=== PATIENT | female | born 1965 | race Caucasian/White ===

== ENCOUNTER 2017-11-01 15:06 | Emergency (ER) | payer SELFPAY ==
[2017-11-01 15:09] VITALS: BP 154/103; PULSE 75; RESP 18; TEMP 36.6; O2SAT 97; BMI 37.6
[2017-11-01 16:15] LABS: Absolute Lymphocyte Count 1.82 X10^3/ul (0.83-4.51); Absolute Neutrophil Count 3.9 X10^3/uL (2.0-7.7); Basophil# 0.01 X10^3/uL; Basophil% 0.2 % (0-1); Eosinophil# 0.21 X10^3/uL; Eosinophils% 3.3 % (0-5); Hematocrit 39.3 % (37-47); Hemoglobin 12.9 g/dl (12.0-15.0); Lymphocyte # 1.82 X10^3/ul (4.0); Lymphocyte % 28.6 % (19-41); Mean Corp Hgb Conc 32.8 g/gl (32-36); Mean Corpuscular Hgb 28.2 pg (27.0-32.0); Mean Platelet Vol. 9.4 fl (6.2-12.0); Monocyte# 0.41 X10^3/uL; Monocyte% 6.4 % (0-10); Neutrophil % 61.2 % (47-70); POSITIVE COUNT NO; POSITIVE DIFFERENTIAL NO; POSITIVE MORPHOLOGY NO; Platelet Count 228 K/mm3 (150-450); RBC Distribution Width CV 14.2 % (11.6-14.6); RBC Distribution Width SD 43.9 fl (35.1-43.9); Red Blood Count 4.57 M/mm3 (4.2-5.4); White Blood Count 6.4 K/mm3 (4.4-11.0)
[2017-11-01 16:30] LABS: Pregnancy, Serum, hCG Quali. NEGATIVE Negative (0-9 Nonpreg)
--- NOTE | 2017-11-01 16:36 | ED.VISSUMM ---
- ER Visit Summary Date of Service: 11/01/17 Chief Complaint: Vaginal bleeding that started last evening History of Present Illness: The patient is a 52 F who presents with vaginal bleeding that started last evening. She has used 12 tampons since 1830. She states she is passing clots. She is on no anticoagulant. She reports vaginal bleeding last month. Last normal menstrual period 9-10 months ago. She denies any fever, chills or night sweats. She denies any weight gain or weight loss. She denies any cardiac respiratory symptoms. She denies abdominal pain. She denies nausea, vomiting, diarrhea or constipation. She denies dysuria, frequency, urgency or hematuria. She denies dyspareunia. Physical Examination: Vital signs are remarkable for an elevated blood pressure. HEENT exam is unremarkable pink conjunctival. Heart is regular without murmur, gallop or rub. S1 and S2 are normal. Lungs are clear to auscultation with good movement of air bilaterally. Abdomen is soft nontender. Surgical scar secondary to and cholecystectomy are noted. They are well-healed. There is no inguinal lymphadenopathy. External genitalia is normal. There is blood in the vaginal vault with active bleeding. There appears to be a soft fleshy mass extruding from the office. The cervix, otherwise, does not appear abnormal. Bimanual exam is limited secondary body habitus. There is no cervical motion tenderness. There is a fleshy palpable mass which may represent a polyp or tumor (see benign versus malignant) Test Results: The uterus is anteverted and is in a midline position. The uterus measures 9.7 x 6.9 x 5.8 cm. Cervical nabothian cysts are present. The endometrium measures 11 mm in thickness, and is hyperechoic. There is no demonstrated endometrial mass. 3 uterine fibroids are noted, measuring 1.9 x 2.0 x 1.9 cm, 5.5 x 5.6 x 4.2 cm, and 1.7 x 1.9 x 1.6 cm respectively. I.U.D. - The patient does not have an I.U.D. CBC and hemoglobin unremarkable. Serum test is negative. Emergency Department Course and Treatment: CBC was obtained to assess for anemia. Clinically she does not appear anemic. Serum test. Because of the abnormal finding on pelvic exam ultrasound was obtained and will contact Dr. Khan who is on for MACHINE TRIMMER, no doc. Treatment Plan: Case was discussed with Dr. Khan. He requested patient call office on Friday to be seen this coming week and to prescribe AYGEST right heel be in your list IN 5 mg tablets 3 times daily for 1 week. Disposition: Discharged to home Impression: 1. Abnormal vaginal bleeding 2. Multiple uterine fibroids 3. Nabothian cyst This note was generated with [employer] dictation software. It may contain incorrect words, spelling, and punctuation that were not noted in review of the chart prior to signing ED Disposition - Plan for ED Patient: Disposition: Home or Assisted Living Chief Complaint: Vag Bleeding Instructions: ED Bleed Irregular Vaginal Prescriptions: Norethindrone [Aygestin] 5 mg PO TID 5 Days #21 tab Referrals: Noel Judd DO [Primary Care Provider] - Reyes Khan MD [STAFF PHYSICIAN] - 5-7 Days Additional Instructions: Call Dr. Khan office Friday to be seen within the next 5-7 days.
[2017-11-01 18:29] VITALS: BP 168/89; PULSE 77; RESP 18; O2SAT 99
== END 2017-11-01 18:50 | disposition home or self-care (01) ==
PROVIDERS: Emergency Provider Emergency Medicine; Family Provider Family Medicine; PCP Family Medicine
DX: D25.9 Leiomyoma of uterus, unspecified (principal); N88.8 Other specified noninflammatory disorders of cervix uteri; N93.9 Abnormal uterine and vaginal bleeding, unspecified; E66.9 Obesity, unspecified; Z79.899 Other long term (current) drug therapy
CPT/HCPCS: 76830; 84703; 85025; 99282

== ENCOUNTER → 2017-11-05 16:44 | Outpatient (CLI) | payer SELFPAY ==
--- NOTE | 2017-11-05 | CER_PTH ---
PATIENT: BALA SPARROW LOC: [facility] U#:[id number] AGE/SX: 59/F ROOM: RE11/05/[address]: Dr. Reyes Khan MD : 1965 BED: DIS: SPEC #: [id number] RECD: 11/05/17 17:08 STATUS: RAQUEL MILLIE #: [id number] ONEIDA: 11/05/17 00:[address]: Reyes Khan DEPT: SURGICAL PATHOLOGY RECD BY: Aristides Carlos Tissues: A - Uterine cervix, NOS B - Endometrium, NOS Procedures: Surgery Specimen Level IV HEADER OPERATION: Endometrial biopsy; removal cervical polyp PRE-OP DIAGNOSIS: Thickened endometrium, menorrhagia TISSUE SUBMITTED: A ? Endocervical polyp, B ? Endometrial biopsy MICROSCOPIC DIAGNOSIS A. Endocervical polyp, polypectomy: Benign endocervical polyp, inflamed. B. Endometrium, biopsy: Secretory endometrium. AM:alexis 11/07/17 MICROSCOPIC DESCRIPTION Slides are reviewed. GROSS DESCRIPTION A - Received in fixative is one container labeled with the patient's name and designated endocervical polyp. The specimen consists of a single glistening pink-bach polyp measuring 3 x 2 x 1 cm. The specimen is serially sectioned and totally submitted in one cassette. B - Received in fixative is one container labeled with the patient's name and designated endometrial biopsy. The specimen consists of multiple irregular and elongated fragments of red-bach soft tissue that in aggregate measure 3 x 3 x 0.2 cm. The specimen is totally submitted in one cassette. / AM:alexis 11/06/17 TC:5 CPT: 44412 x2
[2017-11-05 18:06] LABS: Follicle Stimulating Hormone 22.9 mIU/mL
== END ==
PROVIDERS: Visit Provider Obstetrics & Gynecology
DX: N93.8 Other specified abnormal uterine and vaginal bleeding (principal); N84.0 Polyp of corpus uteri
CPT/HCPCS: 36415; 83001; 88305

== ENCOUNTER 2017-11-14 17:19 | Emergency (ER) | payer SELFPAY ==
[2017-11-14 17:21] VITALS: BP 166/103; PULSE 71; RESP 18; TEMP 36.7; O2SAT 99; BMI 37.1
--- NOTE | 2017-11-14 17:44 | ED.VISSUMM ---
- ER Visit Summary Date of Service: 11/14/17 Chief Complaint: Vaginal bleeding History of Present Illness: The patient is a 52 F presenting with vaginal bleeding. She states it started 2 weeks ago and bleeding has been intermittent. She was seen in the ED 2 weeks ago for same complaint. At that time she had an ultrasound and blood work performed. She was started on Aygestin. She states she took this for 1 week. She said the bleeding resolved before even starting the medication. She states on November 01 she felt dizzy and passed out. At that time she was taken to [place] ER. She was given IV fluids and discharged. She followed up with Dr. Khan on 11/12/2017. She was told she is in menopause. She states she began having bleeding again 2 days ago. She states the bleeding has now slowed down. Physical Examination: Vitals are stable. Patient is afebrile. Alert no acute distress. HEENT exam is unremarkable. Lungs are clear and equal bilaterally. Heart is regular rate and rhythm. Abdomen is soft nontender nondistended. Pelvic: Small amount of old blood in the vaginal vault, cleared with cotton tip swab. No active bleeding. Extremities are unremarkable. Skin is warm and dry. Remainder of exam is unremarkable. Emergency Department Course and Treatment: Orthostatics are negative. Her hemoglobin is 11.7, previous was 12.9. Discussed with Dr. Bryanna Allen. She recommends offering another course of Aygestin and following up with Dr. Khan in the office. She is advised to return to the ED for any worsening complaints. Disposition: Discharge home Impression: Vaginal bleeding This note was generated with [employer] dictation software. It may contain incorrect words, spelling, and punctuation that were not noted in review of the chart prior to signing ED Disposition - Plan for ED Patient: Chief Complaint: Female C/O Instructions: Understanding Menopause Prescriptions: Norethindrone [Aygestin] 5 mg PO TID 7 Days #21 tablet Referrals: Reyes Khan MD [STAFF PHYSICIAN] - Noel Judd DO [Primary Care Provider] -
--- NOTE | 2017-11-14 17:47 | ED.DCSUM_ITS ---
- ER Visit Summary Date of Service: 11/14/17 Chief Complaint: Vaginal bleeding History of Present Illness: The patient is a 52 F presenting with vaginal bleeding. She states it started 2 weeks ago and bleeding has been intermittent. She was seen in the ED 2 weeks ago for same complaint. At that time she had an ultrasound and blood work performed. She was started on Aygestin. She states she took this for 1 week. She said the bleeding resolved before even starting the medication. She states on November 01 she felt dizzy and passed out. At that time she was taken to [place] ER. She was given IV fluids and discharged. She followed up with Dr. Khan on 11/12/2017. She was told she is in menopause. She states she began having bleeding again 2 days ago. She states the bleeding has now slowed down. Physical Examination: Vitals are stable. Patient is afebrile. Alert no acute distress. HEENT exam is unremarkable. Lungs are clear and equal bilaterally. Heart is regular rate and rhythm. Abdomen is soft nontender nondistended. Pelvic: Small amount of old blood in the vaginal vault, cleared with cotton tip swab. No active bleeding. Extremities are unremarkable. Skin is warm and dry. Remainder of exam is unremarkable. Emergency Department Course and Treatment: Orthostatics are negative. Her hemoglobin is 11.7, previous was 12.9. Discussed with Dr. Bryanna Allen. She recommends offering another course of Aygestin and following up with Dr. Khan in the office. She is advised to return to the ED for any worsening complaints. Disposition: Discharge home Impression: Vaginal bleeding This note was generated with [employer] dictation software. It may contain incorrect words, spelling, and punctuation that were not noted in review of the chart prior to signing ED Disposition - Plan for ED Patient: Chief Complaint: Female C/O Instructions: Understanding Menopause Prescriptions: Norethindrone [Aygestin] 5 mg PO TID 7 Days #21 tablet Referrals: Reyes Khan MD [STAFF PHYSICIAN] - Noel Judd DO [Primary Care Provider] -
[2017-11-14 18:09] LABS: Absolute Lymphocyte Count 1.86 X10^3/ul (0.83-4.51); Basophil# 0.01 X10^3/uL; Basophil% 0.2 % (0-1); Eosinophil# 0.23 X10^3/uL; Eosinophils% 3.6 % (0-5); Hematocrit 36.6 % (37-47); Hemoglobin 11.7 g/dl (12.0-15.0); Lymphocyte # 1.86 X10^3/ul (4.0); Lymphocyte % 28.8 % (19-41); Mean Corpuscular Hgb 27.9 pg (27.0-32.0); Mean Corpuscular Volume 87.1 fL (81-99); Mean Platelet Vol. 9.1 fl (6.2-12.0); Monocyte# 0.41 X10^3/uL; Monocyte% 6.3 % (0-10); Neutrophil # 3.95 X10^3/uL (2.7-7.7); Neutrophil % 61.1 % (47-70); POSITIVE COUNT NO; POSITIVE DIFFERENTIAL NO; POSITIVE MORPHOLOGY NO; Platelet Count 256 K/mm3 (150-450); RBC Distribution Width CV 15.3 % (11.6-14.6); White Blood Count 6.5 K/mm3 (4.4-11.0)
[2017-11-14 18:13] VITALS: BP 141/72; BP 143/91; BP 166/76; PULSE 73; PULSE 74; PULSE 77
--- NOTE | 2017-11-14 18:31 | ED.DEP ---
ED Disposition - Plan for ED Patient: Chief Complaint: Female C/O Instructions: Understanding Menopause Prescriptions: Norethindrone [Aygestin] 5 mg PO TID 7 Days #21 tablet Referrals: Noel Judd DO [Primary Care Provider] - Reyes Khan MD [STAFF PHYSICIAN] -
[2017-11-14 18:44] VITALS: BP 141/81; PULSE 79; RESP 16; O2SAT 99
== END 2017-11-14 18:45 | disposition home or self-care (01) ==
LOC: ED 17:55
PROVIDERS: Emergency Provider Emergency Medicine; Family Provider Family Medicine; PCP Family Medicine
DX: N93.9 Abnormal uterine and vaginal bleeding, unspecified (principal); I10 Essential (primary) hypertension; Z79.899 Other long term (current) drug therapy
CPT/HCPCS: 85025; 99283

== ENCOUNTER → 2019-01-06 | Outpatient (CLI) | payer SELFPAY ==
--- NOTE | 2019-01-06 13:45 | BI_ITS ---
MAMMOGRAPHY - BILATERAL SCREENING REASON FOR EXAM: Female, 53 years old. Routine annual screening examination. PERTINENT HISTORY: Non-contributory. Remote right excisional breast biopsy. TECHNIQUE: Digital bilateral breast dougie (3D mammographic acquisition) in the CC and MLO projections. 2-D mediolateral oblique (MLO) and craniocaudad (CC) views of both breasts were obtained. CAD: Full Field Digital Mammography with Computer Added Detection was performed. COMPARISON: Comparison is made with prior outside examination dated March 21 2010 on the hard copy films. FINDINGS: Breast Composition: The breasts are heterogeneously dense, which may obscure small masses. There are no dominant masses or suspicious calcifications. No other significant abnormalities are identified. There has been no significant change since the prior study. BI/SCREEN MAMM (CAD) W/DOUGIE BILAT IMPRESSION: Stable bilateral screening mammogram. Yearly follow-up mammogram recommended. (A) ASSESSMENT CATEGORY: BIRADS Category 1: Negative. A letter regarding these results will be sent to the patient by the facility within 30 days. Approximately 10% of breast cancers are not detected by mammography. A normal mammogram should not delay biopsy of a clinically suspicious abnormality. [id number] Electronically Signed: Amari Bridges, at 10:56 EST , Service support ,
== END | disposition home or self-care (01) ==
PROVIDERS: Family Provider Family Medicine; PCP Family Medicine; Referring Provider Obstetrics & Gynecology; Visit Provider Obstetrics & Gynecology
DX: Z12.31 Encounter for screening mammogram for malignant neoplasm of breast (principal)
CPT/HCPCS: 77063; 77067

== ENCOUNTER → 2019-09-01 13:55 | Outpatient (CLI) | payer SELFPAY ==
--- NOTE | 2019-09-01 11:50 | EMB_PTH ---
PATIENT: BALA SPARROW LOC: [facility] U#:[id number] AGE/SX: 59/F ROOM: RE09/01/[address]: Dr. Moe Paniagua MD : 1965 BED: DIS: SPEC #: [id number] RECD: 09/01/19 13:52 STATUS: RAQUEL MILLIE #: [id number] ONEIDA: 09/01/19 11:[address]: Moe Paniagua DEPT: SURGICAL PATHOLOGY RECD BY: Berry Beasley ENTERED: 09/02/19 08:11 SP TYPE: ENDOM BX/C ELOISE DR: Dr. Noel Judd DO Tissues: Endometrium, NOS Procedures: Surgery Specimen Level IV HEADER OPERATION: Endometrial biopsy PRE-OP DIAGNOSIS: N95.0 TISSUE SUBMITTED: Endometrial biopsy MICROSCOPIC DIAGNOSIS Endometrial biopsy: Disordered proliferative endometrium. SJ:alexis 09/03/19 MICROSCOPIC DESCRIPTION Slides are reviewed. GROSS DESCRIPTION Received in fixative is one container labeled with the patient's name and designated endometrial biopsy. The specimen consists of multiple irregular and elongated fragments of red-bach soft tissue that in aggregate measure 2 x 1.5 x 0.1 cm. The specimen is totally submitted in one cassette. / AM:alexis 09/02/19 TC:5 CPT: 97978
[2019-09-08 18:20] LABS: HPV Reflexed? NOT INDICATED
== END ==
PROVIDERS: PCP Family Medicine; Referring Provider Obstetrics & Gynecology; Visit Provider Obstetrics & Gynecology
DX: N95.0 Postmenopausal bleeding (principal); Z12.4 Encounter for screening for malignant neoplasm of cervix
CPT/HCPCS: 88175; 88305; G0145

== ENCOUNTER → 2021-12-19 | Outpatient (CLI) | payer SELFPAY ==
--- NOTE | 2021-12-19 | EMB_PTH ---
PATIENT: BALA SPARROW [id number] AGE/SX: 56/F ROOM: RE12/19/[address]: Dr. Destini Almeida DO : 1965 BED: DIS: 12/19/2021 SPEC #: [id number] RECD: 12/19/21 13:50 STATUS: RAQUEL RERicardo #: [id number] ONEIDA: 12/19/21 00:[address]: Destini Almeida DEPT: SURGICAL PATHOLOGY RECD BY: Aristides Carlos ENTERED: 12/20/21 08:54 SP TYPE: ENDOM BX/C ELOISE DR: Dr. Noel Judd DO Tissues: Endometrium, NOS Procedures: Surgery Specimen Level IV HEADER OPERATION: Endometrial biopsy PRE-OP DIAGNOSIS: PMB N95.0 TISSUE SUBMITTED: Endometrial biopsy MICROSCOPIC DIAGNOSIS Endometrium, biopsy: Strips of benign superficial endometrium and endocervix. AM:alexis 12/21/2021 MICROSCOPIC DESCRIPTION Slides are reviewed. GROSS DESCRIPTION Received in fixative is one container labeled with the patient's name and designated endometrial biopsy. The specimen consists of multiple fragments of hemorrhagic soft tissue that in aggregate measure 2 x 1.5 x 0.1 cm. The specimen is totally submitted in one cassette. / SJ:alexis 12/20/2021 TC:5 CPT: 11338
== END | disposition home or self-care (01) ==
LOC: LABSPEC 13:24
PROVIDERS: PCP Family Medicine; Visit Provider Student in an Organized Health Care Education/Training Program
DX: N95.0 Postmenopausal bleeding (principal)
CPT/HCPCS: 88305

== ENCOUNTER → 2021-12-27 | Outpatient (CLI) | payer SELFPAY | END | disposition home or self-care (01) | PROVIDERS: PCP Family Medicine; Visit Provider Obstetrics & Gynecology | DX: R30.0 Dysuria (principal) | CPT/HCPCS: 87086; 87088 ==

== ENCOUNTER 2022-11-12 09:17 | Day surgery (SDC) | payer SELFPAY ==
[2022-11-12] VITALS (7 sets, daily range): BP systolic 104–135; BP diastolic 61–78; PULSE 60–70; RESP 14–18; TEMP 36.4–36.6; O2SAT 93–99; BMI 39.6
--- NOTE | 2022-11-12 07:17 | HP.PCM.OB_ITS ---
History and Physical Date of Admission: 11/12/22 HPI: 57-year-old female with postmenopausal bleeding and thickened endometrial lining plan for hysteroscopy, dilation and curettage. Denies headache or vision changes, chest pain or shortness of breath, nausea or vomiting, diarrhea constipation, fevers or chills. MATERIALS PLANNING MANAGER history: G4, P3 Medical history: 1. Hypertension 2. Hypothyroidism Surgical history: 1. section 2. Cholecystectomy 3. Oral surgery Medications: 1. Amlodipine 2. Vitamin D 3. Iron 4. Hydrochlorothiazide 5. Levothyroxine 6. Fish oil 7. Red yeast rice Allergies: Codeine causes a rash, penicillin causes rash Family history: Noncontributory Social history: Denies tobacco, alcohol, drug use Review of system: Negative otherwise stated above Physical exam: Vitals pending General: No acute distress HEENT: Normocephalic/atraumatic, PERRLA Cardiorespiratory: Regular rate and rhythm, clear to auscultation bilaterally Abdomen: Soft, nontender Extremities: No edema Neurologic: Cranial nerves II through XII grossly intact, no focal deficits Musculoskeletal: Moves all extremities equally Assessment/plan: 57-year-old female with postmenopausal bleeding and thickened endometrial lining plan for hysteroscopy, dilation and curettage. All risks, benefits, alternatives were discussed with the patient: Risks include but are not limited to: Risk of bleeding to the point of transfusion, infection, injury to surrounding tissue including bowel/bladder potentially requiring prolonged Laboy catheter use/major abdominal vessels, VTE, ICU admission. Patient aware and consented.
[2022-11-12] MEDS: Lactated Ringers 1,000 ML 15 ML IV (10:19)
[2022-11-12 10:33] LABS: Hematocrit 43.2 % (37-47); Hemoglobin 14.4 g/dL (12.0-15.0); Mean Corp Hgb Conc 33.3 g/dL (32-36); Mean Corpuscular Hgb 29.2 pg (27.0-32.0); Mean Corpuscular Volume 87.6 fL (81-99); Mean Platelet Vol. 9.8 fl (6.2-12.0); Platelet Count 236 K/mm3 (150-450); RBC Distribution Width CV 14.2 % (11.6-14.6); RBC Distribution Width SD 45.6 fl (35.1-43.9); Red Blood Count 4.93 M/mm3 (4.2-5.4); White Blood Count 5.6 K/mm3 (4.4-11.0)
--- NOTE | 2022-11-12 10:59 | PCM.OPRPT ---
Report of Operation Date of Procedure: 11/12/22 Pre-Operative Diagnosis: Postmenopausal bleeding, thickened endometrial stripe Post-Operative Diagnosis: Postmenopausal bleeding, thickened endometrial stripe Surgery/Procedure Performed:: Hysteroscopy, dilation curettage, polypectomy Description of Surgical Findings:: Normal-appearing external genitalia. Minimal uterine descensus. Normal appearing cervix. Thickened endometrial lining with endometrial polyp. Surgeon: Destini Almeida Type of Anesthesia: MAC Specimen's removed: Endometrial curettings, endometrial polyp Estimated Blood Loss (mL): 5 cc Fluids Replaced: 400 cc Description of Procedure: Indication/risk/benefits: Procedure: Patient taken the operating room and MAC anesthesia induced. Patient placed in the dorsal lithotomy position prepped and draped in the usual sterile fashion. Weighted speculum placed in posterior vagina and Valadez retractor used to visualize the cervix. Anterior lip of the cervix grasped with Allis clamp. Cervix gradually dilated. Hysteroscope placed through the cervical canal with inspection of the endometrial cavity noting findings above. Hysteroscope removed. Curettage completed in a 360 degree manner. Polyp removed on endometrial curetting and use of polyp forceps. Confirmed on hysteroscopy. Allis clamp removed and weighted speculum removed. Cervix hemostatic. At the end of the procedure all needle, lap, sponge counts were correct. Urine output: 100 cc clear urine Complications None Admit VTE Documentation VTE Mechan Device Prophylaxis: SCD's
--- NOTE | 2022-11-12 11:00 | EMB_PTH ---
PATIENT: BALA SPARROW [place] [facility] [place][id number] AGE/SX: 57/F ROOM: RE11/12/[address]: Dr. Destini Almeida DO : 1965 BED: DIS: 11/12/2022 SPEC #: [id number] RECD: 11/12/22 11:23 STATUS: RAQUEL RERicardo #: [id number] ONEIDA: 11/12/22 11:[address]: Destini Almeida DEPT: SURGICAL PATHOLOGY RECD BY: Shital Davis ENTERED: 11/12/22 12:19 SP TYPE: ENDOM BX/C ELOISE DR: Dr. Noel Judd DO Tissues: Endometrium, NOS Procedures: Surgery Specimen Level IV HEADER OPERATION: Hysteroscopy, dilation and curettage PRE-OP DIAGNOSIS: Postmenopausal bleeding and thickened endometrial lining TISSUE SUBMITTED: Endometrial curettings, polyp MICROSCOPIC DIAGNOSIS Endometrial curettings and polyp: Simple and focal complex hyperplasia with focal mild atypia. Benign endometrial polyp with simple endometrial hyperplasia without atypia. See comment. DEVORAH:alexis 11/13/2022 COMMENT Clinical correlation and appropriate follow up are necessary. MICROSCOPIC DESCRIPTION Slides are reviewed. GROSS DESCRIPTION Received in fixative is one container labeled with the patient's name and designated endometrial curettings and polyp. The specimen consists of multiple fragments of hemorrhagic soft tissue that in aggregate measure 2.5 x 1.5 x 0.4 cm. Also present in the container is an irregular bach-pink polyp measuring 1.5 x 1.0 x 0.4 cm. The polyp is bisected. The entire specimen is submitted in three cassettes. Cassette 3 contains the polyp. / DEVORAH:alexis 11/12/2022 TC:5 CPT: 00687
--- NOTE | 2022-11-12 11:01 | DCINST_ITS ---
Discharge Instructions Diet Discharge Diet: No restrictions Activity Discharge Activity: Return to Normal Activity and May Shower May resume sexual activity in: 2 weeks Weight Bearing Status: Weight bearing as tolerated Lifting Restrictions: None Dressing / Incision Call your doctor if you observe: Fever of 101 or Higher, Change in Color, Inability to urinate, Using more than 1 pad per hour, Shortness of breath, Dizziness, Swelling in the ankles, Chest pain and Calf discomfort Follow Up Care Please Follow Up With: Destini Almeida DO When: 1-2 week postoperative visit Test Results: Test results from this visit will be discussed in further detail at your follow- up appointment, if applicable. Discharge Plan Admission Primary Reason for Your Visit: D&C Attending Provider: Destini Almeida Primary Care Provider: Noel Judd Discharge Orders/Prescriptions Prescriptions: Continued hydrochlorothiazide 25 MG tablet 25 mg PO DAILY ferrous sulfate 325 mg (65 mg iron) tablet,delayed release (DR/EC) 325 mg PO DAILY amlodipine 5 mg tablet 5 mg PO DAILY Patient Comments: TAKE 1 TABLET BY MOUTH ONCE DAILY levothyroxine 75 mcg tablet 75 mcg PO DAILY Patient Comments: TAKE 1 TABLET BY MOUTH ONCE DAILY cholecalciferol (vitamin D3) [Vitamin D3] 25 mcg (1,000 unit) capsule 25 mcg PO DAILY red yeast rice 600 mg capsule 600 mg PO DAILY Rx Instructions: give with meal/snack omega 2-ioq-ivh-fish oil [Fish Oil] 300-1,000 mg capsule 1 cap PO DAILY Referrals / Follow Up: Noel Judd DO [Primary Care Provider] - Disposition Disposition (needs filled in before D/C Order can be placed): Home, Self Care
[2022-11-12] MEDS: Acetaminophen 500 MG Tablet 1000 MG PO (11:53)
== END 2022-11-12 12:23 | disposition home or self-care (01) ==
LOC: SDC 09:23 → AC 09:24
PROVIDERS: PCP Family Medicine; Referring Provider Student in an Organized Health Care Education/Training Program; Visit Provider Student in an Organized Health Care Education/Training Program
PROC: 0UDB8ZZ Extraction of Endometrium, Via Natural or Artificial Opening Endoscopic (ICD-10-PCS; CPT 58558; principal; 2022-11-12 10:50)
DX: N85.01 Benign endometrial hyperplasia (principal); N95.0 Postmenopausal bleeding; I10 Essential (primary) hypertension; E03.9 Hypothyroidism, unspecified; Z79.899 Other long term (current) drug therapy
CPT/HCPCS: 58558; 00952; 85027; 86850; 86900; 86901; 88305; J7120; J2405